=== PATIENT | male | born 1940 | race Caucasian/White ===

== ENCOUNTER → 2016-07-24 | Day surgery (SDC) | payer MEDICARE, BC ==
[~2016-07-24] VITALS: Ht 177.8 cm; Wt 75.5 kg
[~2016-07-24] MED LIST: CORDARONE,PACE200 MG PO; COUMADIN **IA2.5 MG PO; GLUCOPHAGE1000 MG PO; LEVOTHROID(SYN75 MCG PO; LOTRISONE15 GM TOP; MECLIZINE HCL25 MG PO; NORCO 5-325 TA1 EACH PO; NORVASC5 MG PO; PRAVACHOL40 MG PO; PRINIVIL (ZESTRI5 MG PO; SIMVASTATIN1 GM PO
--- NOTE | ~2016-07-24 | OR ---
PATIENT'S NAME: MATHEW MALHOTRA [facility] AGE: 76 Y [address] ROOM: [place] [address] LOCATION: [facility] [place] ADMIT DATE: 07/24/2016 OR/Procedure Report DISCHARGE DATE: FAMILY PHYSICIAN: Valdez Nathan MD ATTENDING PHYSICIAN: John Chapman SURGEON: John Chapman MD SIGN LANGUAGE INTERPRETER: DATE OF PROCEDURE: 07/24/2016 PREOPERATIVE DIAGNOSIS: Bilateral nephrolithiasis with symptomatic right distal ureterolithiasis. POSTOPERATIVE DIAGNOSIS: Bilateral nephrolithiasis with symptomatic right distal ureterolithiasis. PROCEDURE PERFORMED: Cystoscopy with right ureteroscopy and laser lithotripsy followed by stone basket extractions, followed by right ureteral stent placement. ANESTHESIA: General. INDICATION: This is a 76-year-old gentleman with a past history of stone disease. He was actually evaluated 3 to 4 months ago for gross hematuria. The only finding was bilateral upper tract stones. He is anticoagulated. He became acutely symptomatic few weeks ago. He has been putting up with it. He finally got in today. He had a CT scan done. He has bilateral upper tract stones which were nonobstructing. He also has two 4 to 5 mm stones sitting on top of each other in the distal third and right below the SI joint. With his ongoing pain symptoms, he presents for intervention. He is chronically anticoagulated, so we will not plan on proceeding with lithotripsy at this time. We will see if we can get the lower stones out without stirring up much bleeding. DESCRIPTION OF PROCEDURE: Having obtained his informed consent, the patient was taken to the operating room. He was prepped and draped sterilely and in lithotomy position. General anesthesia was administered. A 21-Filipino cystoscope was assembled and guided into the urethra. The course of the urethra was unremarkable back to the prostate. He seems to have had a prior transurethral resection. I will have to check the records. He is open. The bladder itself demonstrates no tumors, stones, or foreign bodies. Bladder examination was confirmed with a 70-degree lens. I would note that he was scoped back in March 2016 at the time of his gross hematuria. Under fluoroscopy, I can see the stones as appreciated on the CT scan. I passed a guidewire up the right side. It bounces against those stones. Once PATIENT'S NAME: MATHEW MALHOTRA [facility] AGE: 76 Y [address] ROOM: [place] [address] LOCATION: [facility] [place] ADMIT DATE: 07/24/2016 OR/Procedure Report DISCHARGE DATE: FAMILY PHYSICIAN: Valdez Nathan MD ATTENDING PHYSICIAN: John Chapman we manipulate the guidewire beyond it, we see an ongoing river of debris. Most of it looks like old blood. Once we got that cleared, I went ahead and dilated the orifice and intramural tunnel. I followed that with the semi- rigid scope. The large and impacted leading stone is identified. I used a Tricep forceps, but the stone was just too big to extract without breaking it up. Therefore, a 400 micron laser fiber was prepared and passed. The leading stone is broken up. We then worked on the stone behind it. Ultimately got everything fragmented, so I can pass my ureteroscope into the dilated system above. We then spent some time with the forceps and a basket extracting the fragments. A couple of residential sales representative fragments are sent for analysis. At the conclusion, a retrograde was obtained. The ureter appears open. There was no extravasation. We do not have any significant bleeding. With all that, he should be stented. Therefore, my safety wire was backloaded into the cystoscope. Over that, we passed a 4.8 multi-length stent. We have a nice level of placement cystoscopically and fluoroscopically. The bladder was drained, and the case was concluded. The patient tolerated the procedure well. Blood loss was negligible. The above-noted stone specimens were sent. The patient returned to recovery awake and in stable condition. The plan will be to hold his Coumadin and proceed with elective lithotripsy and stent removal. JOHN CHAPMAN MD [facility]/modl /[id number] CC: Valdez Nathan MD d: 07/25/16 0038 t: 07/25/16 0933, OPERATIVE SUMMARY
[2016-07-24 14:18] LABS: BASOPHIL % 0.3 %; EOSINOPHIL # 0.2 K/uL (0.0-0.5); EOSINOPHIL % 2.1 %; HEMATOCRIT 36.6 % (37.0-53.0); HEMOGLOBIN 11.9 g/dL (11.0-16.0); IMMATURE GRANULOCYTE % 0.4 %; LYMPHOCYTE # 1.6 K/uL (0.8-4.0); LYMPHOCYTE % 20.5 %; MCH 29.8 pg (27.0-34.0); MCHC 32.5 gm/dL (32.0-36.5); MCV 91.7 fl (83.0-98.0); MONOCYTE # 0.5 K/uL (0.0-1.0); MONOCYTE % 6.3 %; MPV 9.9 fl (9.4-12.4); NEUTROPHIL # (ANC) 5.4 K/uL (1.4-9.0); NEUTROPHIL % 70.4 %; NRBC % 0 /100WBC (0-0.00); PLATELET COUNT 199 K/uL (150-450); RBC 3.99 M/uL (3.50-5.50); RDW-CV 12.7 % (11.9-14.6); WBC 7.6 K/uL (4.0-11.0)
[2016-07-24 14:27] LABS: INR - (THERAPEUTIC) 2.7 (0.9-1.1); PROTIME 31.4 SECONDS (9.6-11.1); PTT 44 SECONDS (25-32)
[2016-07-24 14:33] LABS: ALBUMIN 3.7 gm/dL (3.5-5.0); ANION GAP 12.5 (10.0-19.0); CALCIUM 8.5 mg/dL (8.5-10.5); POTASSIUM 4.5 mMol/L (3.7-5.1); TOTAL BILIRUBIN 0.6 mg/dL (0.0-1.5); TOTAL PROTEIN 7.6 g/dL (6.0-8.4)
[2016-07-24 14:38] LABS: CREATININE 5.2 mg/dL (0.6-1.3)
== END | disposition disaster alternative care site (69) ==
LOC: GRAD 12:30 → GSDC 13:23
PROVIDERS: Urology
PROC: 0TF68ZZ Fragmentation in Right Ureter, Via Natural or Artificial Opening Endoscopic (ICD-10-PCS; principal; 2016-07-24)
PROC: 0T768DZ Dilation of Right Ureter with Intraluminal Device, Via Natural or Artificial Opening Endoscopic (ICD-10-PCS; 2016-07-24)
DX: N20.0 Calculus of kidney (principal); I25.10 Atherosclerotic heart disease of native coronary artery without angina pectoris; I48.91 Unspecified atrial fibrillation; E11.9 Type 2 diabetes mellitus without complications
CPT/HCPCS: C1725; C1769; C2617; J1956; J2001; J7030

== ENCOUNTER → 2016-07-31 | Day surgery (SDC) | payer MEDICARE, BC ==
[~2016-07-31] VITALS: Ht 177.8 cm; Wt 73.8 kg
--- NOTE | ~2016-07-31 | OR ---
PATIENT'S NAME: MATHEW MALHOTRA [facility] AGE: 76 Y [address] ROOM: [place] [address] [place]ATION: [facility] [place] ADMIT DATE: 07/31/2016 OR/Procedure Report DISCHARGE DATE: FAMILY PHYSICIAN: Valdez Nathan MD ATTENDING PHYSICIAN: John Chapman SURGEON: John Chapman MD CREW TRAINER: DATE OF PROCEDURE: 07/31/2016 PREOPERATIVE DIAGNOSES: 1. Bilateral nephrolithiasis. 2. Right ureterolithiasis, status post laser lithotripsy with extraction and stent placement. 3. Chronic kidney disease. POSTOPERATIVE DIAGNOSES: 1. Bilateral nephrolithiasis. 2. Right ureterolithiasis, status post laser lithotripsy with extraction and stent placement. 3. Chronic kidney disease. PROCEDURES PERFORMED: 1. Bilateral extracorporeal shock wave lithotripsy. 2. Cystoscopy and right stent removal. ANESTHESIA: Sedation. INDICATION: This is a 76-year-old gentleman with extensive stone disease. He had presented a week ago with obstruction on the right with stones stacked in the distal ureter. He underwent ureteroscopy with laser lithotripsy and stone basket extractions. Those stones were 100% calcium oxalate. He has bilateral and nonobstructing upper tract stones. The plan was to go ahead and treat those electively and remove his stent. We will be judicious with our shock waves. He has significant renal insufficiency. It was exacerbated by his obstruction on the right side. His right kidney appears to be his better kidney with some bilateral renal atrophy. DESCRIPTION OF PROCEDURE: Having obtained his informed consent, the patient was taken to the lithotripsy suite. He was placed onto the table. The right- sided stone was targeted first. It was brought in the second focal point ellipsoid, and fragmentation was begun. We started at 14 kV and worked up to a maximum of 24 kV. A total of 2400 impulses were administered. That stone had dropped from the collecting system down into the proximal third. We were not hitting the kidney with those shock waves. He was then repositioned on the table. The stones on the left side were targeted. An additional 1400 PATIENT'S NAME: MATHEW MALHOTRA [facility] AGE: 76 Y [address] ROOM: [place] [address] LOCATION: [facility] [place] ADMIT DATE: 07/31/2016 OR/Procedure Report DISCHARGE DATE: FAMILY PHYSICIAN: Valdez Nathan MD ATTENDING PHYSICIAN: John Chapman shock waves at a maximum kV of 20 were administered. We had nice fragmentation. The patient was prepped and draped. Cystoscopy was undertaken. His stent was grasped and extracted. The patient tolerated the procedure well. Blood loss was minimal. No specimens were sent. The patient returned to the outpatient recovery area, awake and in stable condition. I have a renal panel pending to make sure his renal function is doing better after relieving the right-sided obstruction. JOHN CHAPMAN MD [facility]/modl /[id number] CC: Valdez Nathan MD d: 07/31/16 1346 t: 08/14/16 1039, OPERATIVE SUMMARY
[2016-07-31 10:34] LABS: INR - (THERAPEUTIC) 1.1 (0.9-1.1); PROTIME 11.4 SECONDS (9.6-11.1)
[2016-07-31 13:44] LABS: ALBUMIN 3.4 gm/dL (3.5-5.0); ANION GAP 10.4 (10.0-19.0); CREATININE 3.5 mg/dL (0.6-1.3); POTASSIUM 4.4 mMol/L (3.7-5.1); TOTAL PROTEIN 6.7 g/dL (6.0-8.4)
[2016-07-31 13:45] LABS: TOTAL BILIRUBIN 0.8 mg/dL (0.0-1.5)
== END | disposition disaster alternative care site (69) ==
LOC: GSDC 07:00
PROVIDERS: Urology
PROC: 0TF4XZZ Fragmentation in Left Kidney Pelvis, External Approach (ICD-10-PCS; principal; 2016-07-31)
PROC: 0TF3XZZ Fragmentation in Right Kidney Pelvis, External Approach (ICD-10-PCS; 2016-07-31)
PROC: 0TP98DZ Removal of Intraluminal Device from Ureter, Via Natural or Artificial Opening Endoscopic (ICD-10-PCS; 2016-07-31)
DX: N20.2 Calculus of kidney with calculus of ureter (principal); Z46.6 Encounter for fitting and adjustment of urinary device; E11.22 Type 2 diabetes mellitus with diabetic chronic kidney disease; N18.9 Chronic kidney disease, unspecified; I48.91 Unspecified atrial fibrillation; G47.33 Obstructive sleep apnea (adult) (pediatric)
CPT/HCPCS: J1956; J2001; J7030